=== PATIENT | male | born 1950 | race Caucasian/White ===

== ENCOUNTER 2021-03-06 00:12 | Emergency (ER) | payer SELFPAY ==
[~2021-03-06] VITALS: Ht 185.4 cm; Wt 113.4 kg
--- NOTE | 2021-03-06 01:15 | NUR ---
Dr. Sandoval at bedside for MSE.
--- NOTE | 2021-03-06 01:45 | NUR ---
Xray at bedside.
[2021-03-06 01:54] LABS: HEMATOCRIT 33.3 % (36.7-47.1); MEAN CORPUSCULAR HEMOGLOBIN 34.2 uug (23.8-33.4); MEAN CORPUSCULAR VOLUME 99.7 fL (73.0-96.2); PLATELET COUNT (AUTO) 305 K/uL (152-348)
[2021-03-06 01:59] LABS: POTASSIUM 3.6 mmol/L (3.5-5.1)
[2021-03-06] MEDS ORDERED: ATOR40TA PO (02:28)
[2021-03-06] MEDS ORDERED: MAGN400C PO (02:28)
[2021-03-06] MEDS ORDERED: ALPR0.5T8 PO (02:28)
[2021-03-06] MEDS ORDERED: POTA-194 PO (02:28)
[2021-03-06] MEDS ORDERED: OMEP20TA5 PO (02:28)
[2021-03-06] MEDS ORDERED: OXYC5TAB3 PO (02:28)
[2021-03-06] MEDS ORDERED: AMIO200T5 PO (02:28)
[2021-03-06] MEDS ORDERED: ASPI81TA31 PO (02:28)
[2021-03-06] MEDS ORDERED: SENN-18 PO (02:28)
[2021-03-06] MEDS ORDERED: FURO20TA4 PO (02:28)
[2021-03-06] MEDS ORDERED: FINA5TAB11 PO (02:28)
[2021-03-06] MEDS ORDERED: ONDANSETRON ODT 4 MG TAB.RAPDIS SL ONE (02:30)
[2021-03-06] MEDS ORDERED: HYDROMORPHONE 1 MG/1 ML DISP.SYRIN IV ONE (02:30)
[2021-03-06] MEDS ORDERED: HYDROMORPHONE 1 MG/1 ML DISP.SYRIN ONE (02:49)
[2021-03-06] MEDS ORDERED: ONDANSETRON 4 MG/2 ML VIAL ONE (02:49)
[2021-03-06] MEDS: MAGNESIUM SULFATE/D5W 100 ML IV SCH ×2 (02:50→03:28)
[2021-03-06] MEDS ORDERED: MAGNESIUM SULFATE/D5W 200 ML ONE (02:50)
[2021-03-06] MEDS ORDERED: ONDANSETRON 4 MG/2 ML VIAL IV ONE (03:00)
[2021-03-06] MEDS ORDERED: FUROSEMIDE 20 MG/2 ML VIAL IV ONE (03:00)
[2021-03-06] MEDS ORDERED: FUROSEMIDE 20 MG/2 ML VIAL ONE (03:12)
[2021-03-06] MEDS ORDERED: CYANOCOBALAMIN 1000 MCG/ML VIAL IM ONE (03:45)
[2021-03-06] MEDS ORDERED: CYANOCOBALAMIN 1000 MCG/ML VIAL ONE (03:55)
--- NOTE | 2021-03-06 04:39 | NUR ---
Patient discharged to home in stable condition. Written and verbal after care instructions given. Patient verbalizes understanding of instructions. Stressed follow up or return to ER for worsening s/s. Patient out of ER with steady gait, no acute signs of distress, VSS, all belongings taken, IV site discontinued, provided with copies of lab and xray results.
[2021-03-06 04:40] VITALS: BP 126/75
== END 2021-03-06 04:40 | disposition home or self-care (01) ==
LOC: ER 00:16
DX: R07.89 Other chest pain (principal); D64.9 Anemia, unspecified; J98.11 Atelectasis; I50.9 Heart failure, unspecified; Z88.0 Allergy status to penicillin; Z88.2 Allergy status to sulfonamides; Z79.82 Long term (current) use of aspirin; Z79.899 Other long term (current) drug therapy
CPT/HCPCS: 36415; 71045; 80048; 82607; 83605; 83735; 83880; 84484; 85025; 85730; 93005; 96365; 96366; 96372; 96375; 99285; J1170; J1940; J2405; J3420; J3475; 70030-TC; A4663